=== PATIENT | male | born 1955 | race Caucasian/White ===

== ENCOUNTER 2017-07-07 08:10 | Inpatient (IN) | payer BC, OTHER ==
[~2017-07-07] VITALS: Ht 167.6 cm; Wt 90.7 kg
--- NOTE | 2017-07-07 08:10 | NUR ---
DR MEDINA AT THE BEDSIDE FOR EVAL AND EXAM.
[2017-07-07] MEDS ORDERED: HYDROMORPHONE 1 MG/1 ML DISP.SYRIN IV ONE (08:15)
[2017-07-07] MEDS ORDERED: ONDANSETRON 4 MG/2 ML VIAL IV ONE (08:15)
[2017-07-07] MEDS ORDERED: HYDROMORPHONE 1 MG/1 ML DISP.SYRIN ONE (08:33)
[2017-07-07] MEDS ORDERED: ONDANSETRON 4 MG/2 ML VIAL ONE (08:33)
--- NOTE | 2017-07-07 08:33 | NUR ---
PT OUT OF ER FOR CT.
[2017-07-07 08:44] LABS: BASOPHILS % (AUTO) 0.3 % (0.0-2.0); EOSINOPHILS # (AUTO) 0.3 K/uL (0.0-0.7); HEMATOCRIT 44.7 % (40-50); HEMOGLOBIN 15.3 G/DL (14.0-18.0); LYMPHOCYTES # (AUTO) 2.9 K/UL (0.8-4.8); LYMPHOCYTES % (AUTO) 33.3 % (20.5-51.5); MEAN CORPUSCULAR HEMOGLOBIN 29.5 UUG (27.0-31.0); MEAN CORPUSCULAR HGB CONC 34 g/dL (32.0-37.0); MEAN CORPUSCULAR VOLUME 86.2 FL (82.0-92.0); MONOCYTES # (AUTO) 0.6 K/UL (0.1-1.30); MONOCYTES % (AUTO) 7.1 % (0.0-11.0); NEUTROPHILS % (AUTO) 56.3 % (38.5-71.5); PLATELET COUNT (AUTO) 260 K/UL (150-450); RED BLOOD CELL COUNT(AUTO) 5.18 MIL/UL (4.7-6.1); WHITE BLOOD COUNT (AUTO) 8.8 K/UL (4.0-11.2)
[2017-07-07 08:46] LABS: CREATININE 0.8 mg/dL (0.6-1.3); POTASSIUM 3.9 mmol/L (3.5-5.1)
[2017-07-07 08:53] LABS: BILIRUBIN,DIRECT 0.1 mg/dL (0.0-0.2); BILIRUBIN,TOTAL 0.3 mg/dL (0.2-1.0); TOTAL PROTEIN, SERUM 6.7 g/dL (6.4-8.2)
--- NOTE | 2017-07-07 09:31 | NUR ---
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
[2017-07-07] MEDS ORDERED: ONDANSETRON 4 MG/2 ML VIAL IV PRN (10:00)
[2017-07-07] MEDS ORDERED: MORPHINE SULFATE 2 MG/1 ML DISP.SYRIN IV PRN (10:00)
[2017-07-07] MEDS ORDERED: ACETAMINOPHEN 325 MG TABLET PO PRN (10:00)
--- NOTE | 2017-07-07 10:07 | NUR ---
Dr Cody consulted by ER for Ortho. Posterier short leg splint applied per MD order to RT ankle.
[2017-07-07] MEDS ORDERED: HYDROMORPHONE 1 MG/1 ML DISP.SYRIN IV PRN (10:45)
--- NOTE | 2017-07-07 11:15 | NUR ---
RECEIVED PATIENT FOR ADMISSION 61 YEARS OLD MALE S/P FALL BY [facility] TO ROOM 214 PLACED INTO BED FIXED AND MADE COMFORTABLE PATIENT IS ALERT ORIENTED UNDERSTANDS AND SPEAKS SOME COLOMBIAN BUT HER DAUGHTER IS PRESENT AND ASSISTING WITH THE ADMISSION PROCESS.HE IS ON ROOM AIR WIT NO SHORTNESS OF BREATH AT THIS TIME BLOOD PRESSURE IS 182/91 CALLED AND NOTIFIED [facility] [employer]AT[facility]RAP[facility] TEACHER RE ADMISSION ORDERED AND MEDICAINE FOR THE BLOOD PRESSURE.RIGHT LEG WITH ANKLE SPLINT AND KISHORE WRAP WITH ADEQUATE CIRCULATION ABLE TO WIGGLE TOES.
[2017-07-07] MEDS ORDERED: HYDROCODONE/APAP 5-325MG TABLET PO PRN (11:30)
[2017-07-07] MEDS: hydrALAZINE HCL 25 MG TABLET PO PRN (11:52)
[2017-07-07 11:55] VITALS: BP 182/91
[2017-07-07] MEDS: HYDROMORPHONE 1 MG/1 ML DISP.SYRIN IV PRN ×2 (11:55→16:39)
--- NOTE | 2017-07-07 11:55 | NUR ---
MEDICATED WITH DILAUDID AND APRESOLINE ORDERED AND WILL OBSERVE.
[2017-07-07] MEDS: FAMOTIDINE 20 MG TABLET PO SCH (12:27)
[2017-07-07] MEDS: AMLODIPINE 5 MG TABLET PO SCH (13:35)
--- NOTE | 2017-07-07 14:35 | NUR ---
NEW ORDER FROM DR FARNSWORTH RECEIVED TO OBTAINED CONSCENT FOR EXTERNAL FIXATION OF THE RIGHT ANKLE AND NOTED.
[2017-07-07 15:28] VITALS: BP 141/81
--- NOTE | 2017-07-07 16:00 | NUR ---
PATIENT SEEN DANGLING AT THE EDGE OF THE BED ENCOURAGED TO STAY IN BED AND ELEVATE HIS RIGHT ANKLE INSTRUCTED AND HE EXPRESSED UNDERSTANDING.PILLOW PLACED UNDER HIS RIGHT LEG CIRCULATION REMAINS ADEQUATE.
--- NOTE | 2017-07-07 17:46 | NUR ---
MEDICATED WITH DILAUDID ORDERED FOR RIGHT ANKLE PAIN AND HELPFUL WILL CONTINUE TO OBSERVE
[2017-07-07] MEDS: HYDROCODONE/APAP 10-325 MG TABLET PO PRN (18:05)
--- NOTE | 2017-07-07 18:05 | NUR ---
PATIENT STATED THAT HIS PAIN MEDICATIONS DOES NOT LAST LONG PATIENT WAS MEDICATED WITH DILAUDID AT 1639 SO NORCO GIVEN AT THIS TIME AND [facility] DIRECT[facility] NOTIFIED WITH NEW ORDERS TO DECREASE THE FREQUENCY TO Q3H BUT SAME DOSE AND NOTED.
[2017-07-07 19:41] VITALS: BP 148/67
--- NOTE | 2017-07-07 20:00 | NUR ---
PT INFORMED OF SURGERY TOMORROW, WILL BE NPO POST MIDNIGHT, PT VERBALIZED UNDERSTANDING. RIGHT LEG ANKLE FRACTURE, KISHORE WRAP BANDAGE TO SITE, TOES CAN WIGGLE, DENIES NUMBNESS. SAFETY MEASURES RENDERED.
[2017-07-07 20:39] LABS: *BILIRUBIN,URIN NEGATIVE (NEGATIVE); *BLOOD, URINE NEGATIVE (NEGATIVE); *CLARITY,URINE SLIGHTLY CLOUDY (CLEAR); *COLOR,URINE YELLOW (YELLOW); *KETONES,URINE NEGATIVE (NEGATIVE); *PROTEIN,URINE NEGATIVE (NEGATIVE); *UROBILINOGEN,URINE 0.2 E.U./dl (NORMAL); LEUKOCYTE ESTERASE ,URINE NEGATIVE (NEGATIVE); NITRITE, URINE NEGATIVE (NEGATIVE); PH,URINE 5.5 (5.0-8.0); UGLUCOSE NEGATIVE (NEGATIVE)
[2017-07-07 21:03] LABS: RBC,URINE 0-3 /HPF (0-3); WBC,URINE 0-3 /HPF (0-3)
[2017-07-07 21:04] LABS: BACTERIA,URINE NONE SEEN /HPF (NONE SEEN); SQUAMOUS EPITHELIAL CELL,UR NONE SEEN /HPF (NONE SEEN)
[2017-07-08] VITALS: BP 142/78
[2017-07-08 04:00] VITALS: BP 156/77
[2017-07-08] MEDS: HYDROMORPHONE 1 MG/1 ML DISP.SYRIN IV PRN ×4 (05:05→20:37)
--- NOTE | 2017-07-08 05:56 | NUR ---
LEFT FOR SURGERY.
[2017-07-08] MEDS ORDERED: SEVOFLURANE 250 ML BOTTLE IH ONE (06:25)
[2017-07-08] MEDS ORDERED: ONDANSETRON 4 MG/2 ML VIAL IV ONE (06:25)
[2017-07-08] MEDS ORDERED: CEFAZOLIN 1 G VIAL MC ONE (06:25)
[2017-07-08] MEDS ORDERED: IV LACTATED RINGERS SOLUTION 1,000 ML BAG MC ONE (06:25)
[2017-07-08] MEDS ORDERED: LIDOCAINE HCL 1% 20 ML VIAL MC ONE (06:25)
[2017-07-08] MEDS ORDERED: PROPOFOL 200 MG/20 ML BOTTLE IV ONE (06:25)
[2017-07-08] MEDS ORDERED: BACITRACIN 50,000 UNITS VIAL ONE (06:27)
[2017-07-08] MEDS ORDERED: FENTANYL CITRATE 100 MCG/2 ML AMPUL ONE (06:39)
[2017-07-08] MEDS ORDERED: MIDAZOLAM HCL 2 MG/2 ML VIAL ONE (06:39)
[2017-07-08 06:47] LABS: EOSINOPHILS # (AUTO) 0.1 K/uL (0.0-0.7); EOSINOPHILS % (AUTO) 1.1 % (0.0-7.0); HEMATOCRIT 42.5 % (40-50); HEMOGLOBIN 14.7 G/DL (14.0-18.0); LYMPHOCYTES # (AUTO) 1.7 K/UL (0.8-4.8); MEAN CORPUSCULAR HGB CONC 35 g/dL (32.0-37.0); MEAN CORPUSCULAR VOLUME 86.6 FL (82.0-92.0); MONOCYTES # (AUTO) 0.9 K/UL (0.1-1.30); MONOCYTES % (AUTO) 8.3 % (0.0-11.0); NEUTROPHILS # (AUTO) 7.8 K/UL (1.8-8.9); NEUTROPHILS % (AUTO) 74.6 % (38.5-71.5); PLATELET COUNT (AUTO) 245 K/UL (150-450); RED BLOOD CELL COUNT(AUTO) 4.91 MIL/UL (4.7-6.1); WHITE BLOOD COUNT (AUTO) 10.5 K/UL (4.0-11.2)
[2017-07-08] MEDS ORDERED: SEVOFLURANE 250 ML BOTTLE ONE (06:53)
[2017-07-08 07:10] LABS: BILIRUBIN,TOTAL 0.6 mg/dL (0.2-1.0); CREATININE 0.8 mg/dL (0.6-1.3); MAGNESIUM 1.7 mg/dL (1.8-2.4); PHOSPHOROUS 2.8 mg/dL (2.5-4.9); POTASSIUM 4.2 mmol/L (3.5-5.1); TOTAL PROTEIN, SERUM 6.7 g/dL (6.4-8.2)
[2017-07-08 08:11] LABS: THYROID STIMULATING HORMONE 4.531 mIU/mL (0.358-3.740)
--- NOTE | 2017-07-08 09:15 | NUR ---
PATIENT RETURNED FROM [facility] BY BED AWAKE ALERT AND ORIENTED ON ROOM AIR WITH NO SHORTNESS OF BREATH AT THIS TIME S/P EXTERNAL FIXATION RIGHT ANKLE WITH BULKY DRESSINGS WITH METALS AND SCREWS PATIENT IS ABLE TO WIGGLE TOES WITH ADEQUATE CIRCULATION AT THIS TIME
[2017-07-08] MEDS: FAMOTIDINE 20 MG TABLET PO SCH (09:24)
[2017-07-08] MEDS: AMLODIPINE 5 MG TABLET PO SCH (09:24)
--- NOTE | 2017-07-08 09:25 | NUR ---
BLOOD PRESSURE IS 155/89 PATIENT GIVEN HIS DUE BLOOD PRESSURE MEDICATIONS WITH APPLE JUICE AND JELLO ORDERED B/FAST FOR HIM. WILL CONTINUE TO OBSERVE.
[2017-07-08 09:49] VITALS: BP 155/89
[2017-07-08] MEDS ORDERED: IV LACTATED RINGERS SOLUTION 1,000 ML IV PRN (10:00)
--- NOTE | 2017-07-08 11:21 | NUR ---
PATIENT OBSERVED SLEEPING ON ROUNDS WITH NO SHORTNESS OF BREATH AT THIS TIME
[2017-07-08 12:05] VITALS: BP 134/72
[2017-07-08] MEDS: CEFAZOLIN 1 G in PREMIXED 1 EACH IV SCH ×2 (14:58→21:39)
--- NOTE | 2017-07-08 15:20 | NUR ---
MEDICATED FOR C/O PAIN RIGHT ANKLE LEG ORDERED AND HELPFUL
[2017-07-08 15:33] VITALS: BP 144/71
[2017-07-08] MEDS: MAGNESIUM SULFATE/D5W 100 ML IV SCH ×2 (15:47→16:44)
--- NOTE | 2017-07-08 18:00 | NUR ---
REMAIN ON IV ATB WITH NO ADVERSE OR ALLERGIC REACTIONS REACTIONS AT THIS TIME.
[2017-07-08] MEDS: HYDROCODONE/APAP 10-325 MG TABLET PO PRN (18:07)
[2017-07-08 19:00] VITALS: BP 159/79
--- NOTE | 2017-07-08 19:30 | NUR ---
PT RECEIVED IN BED, AWAKE. FAMILY AT BEDSIDE. A/OX4. CITIZEN OF [place] SPEAKING, BUT ABLE TO MAKE NEEDS KNOWN. UNDERSTANDS LAO. V/S STABLE. IN NO ACUTE DISTRESS. PT C/O RIGHT ANKLE PAIN AT 04/10. WILL ADMIN PAIN MEDICATION ORDERED. IV INTACT AND PATENT. ON RA, TOLERATING WELL. AFEBRILE AT THIS TIME. SAFETY MEASURES IMPLEMENTED. CALL LIGHT WITHIN REACH.
[2017-07-09] MEDS: HYDROMORPHONE 1 MG/1 ML DISP.SYRIN IV PRN ×3 (03:29→20:49)
[2017-07-09 04:00] VITALS: BP 133/70
[2017-07-09 06:36] LABS: BASOPHILS # (AUTO) 0.1 K/uL (0.0-8.0); BASOPHILS % (AUTO) 0.6 % (0.0-2.0); EOSINOPHILS # (AUTO) 0.1 K/uL (0.0-0.7); EOSINOPHILS % (AUTO) 1.3 % (0.0-7.0); HEMATOCRIT 40.4 % (40-50); HEMOGLOBIN 14.1 G/DL (14.0-18.0); LYMPHOCYTES # (AUTO) 1.9 K/UL (0.8-4.8); LYMPHOCYTES % (AUTO) 17.3 % (20.5-51.5); MEAN CORPUSCULAR HEMOGLOBIN 30.1 UUG (27.0-31.0); MEAN CORPUSCULAR HGB CONC 35 g/dL (32.0-37.0); MONOCYTES # (AUTO) 0.9 K/UL (0.1-1.30); NEUTROPHILS # (AUTO) 8.1 K/UL (1.8-8.9); NEUTROPHILS % (AUTO) 72.8 % (38.5-71.5); PLATELET COUNT (AUTO) 227 K/UL (150-450); RED BLOOD CELL COUNT(AUTO) 4.69 MIL/UL (4.7-6.1); WHITE BLOOD COUNT (AUTO) 11.1 K/UL (4.0-11.2)
--- NOTE | 2017-07-09 06:40 | NUR ---
END OF SHIFT NOTES. PT SLEPT WELL THROUGHOUT SHIFT. IN STABLE CONDITION. IV ABX INFUSED. IV HL, INTACT & PATENT. PAIN MANAGED. RIGHT LEG ELEVATED ON PILLOW. DRESSING C/D/I. ALL NEEDS ATTENDED. SAFETY MAINTAINED. CALL LIGHT WITHIN REACH.
[2017-07-09 06:46] LABS: CREATININE 0.8 mg/dL (0.6-1.3); POTASSIUM 4.3 mmol/L (3.5-5.1)
[2017-07-09 07:35] LABS: BAND % (MANUAL) 3 % (0-10); EOSINOPHILS % (MANUAL) 1 % (0-8); LYMPHOCYTES % (MANUAL) 18 % (20-40); MONOCYTES % (MANUAL) 11 % (2-10); NEUTROPHILS % (MANUAL) 67 % (42-75)
--- NOTE | 2017-07-09 07:45 | NUR ---
RECEIVED PATIENT IN BED AWAKE ALERT WITH SCREWS AND METAL TO HIS RIGHT ANKLE INTACT WITH DRY BLOOD ON THE GAUZE DRESSING AROUND THE METAL SCREWS PATIENT REMINDED TO KEEP HIS RIGHT LEG ELEVATED TO DECREASE SWELLING AND HE EXPRESSED UNDERSTANDING.
[2017-07-09] MEDS: AMLODIPINE 5 MG TABLET PO SCH (08:28)
[2017-07-09] MEDS: FAMOTIDINE 20 MG TABLET PO SCH (08:28)
[2017-07-09] MEDS: HYDROCODONE/APAP 10-325 MG TABLET PO PRN ×2 (08:29→17:26)
--- NOTE | 2017-07-09 09:55 | NUR ---
PHYSICAL THERAPY HERE TO SEE PATIENT AND NOTED THAT THE KISHORE WRAP HAS SOME BLEEDING AND ALSO THEY TRIED TO GET HIM UP HE HAS DRIPS OF BLOOD ON THE FLOOR SO I CALLED DR MEJIA OFFICE TO NOTIFY HIM BUT NO ONE ANSWERED THE PHONE SO I LEFT A MESSAGE ON HIS VOICE MAIL.RE THE BLEEDING AND IF I SHOULD CHANGE OR REINFORCE THE DRESSING.AWAITING FOR RETURN CALL.
--- NOTE | 2017-07-09 11:08 | NUR ---
DR WALLIS RETURNED CALL AND STATED THAT SOME BLEEDING IS OKAY AND EXPECTED JUST REINFORCE OR CHANGE THE DRESSINGS WITH XEROFORM DRESSING GAUZE AND KISHORE WRAP NEEDED.
[2017-07-09 11:16] VITALS: BP 143/69
--- NOTE | 2017-07-09 11:30 | NUR ---
WHEN DRESSING WAS OPEN BY ME INSTRUCTED BY DR WALLIS I NOTED MULTIPLE BLISTERS LARGEST ONE MEASURING 5CM X 3CM AND THE SMALLEST MEASURING 1CM X 1CM WITH SEROUS FLUID INTACT SEE PICTURES.PIN INSERTION SITES AND BLISTERS CLEANSED WITH NORMAL SALINE AND PETROLEUM GAUZE APPLIED TO THE PIN SITES WITH DRY KIRLIX GAUZE THEN THE BLISTERS SECURED WITH TRANSPARENT DRESSINGS FLUIDS REMAIN INTACT THEN WRAPPED WITH KISHORE BANDAGE PATIENT TOLERATED WELL DR NEELY WAS HERE PRESENT AND I TOOK HIM INTO THE ROOM AND HE SAW THESE BLISTERS AND SPOKE TO THE PATIENT AND HIS SON AT LENGTH.
--- NOTE | 2017-07-09 14:30 | NUR ---
PATIENT WAS SEEN BY THE PHYSICAL THERAPY FOR AMBULATION WITH THE FRONT WHEEL WALKER AND TOLERATED WELL AND BACK TO BED.
[2017-07-09 15:41] VITALS: BP 122/70
--- NOTE | 2017-07-09 18:00 | NUR ---
MEDICATED WITH NORCO ORALLY FOR PAIN ORDERED DRESSING RIGHT LEG IS CLEAN AND DRY CONTINUE TO ENCOURAGE PATIENT TO KEEP RIGHT LEG ELEVATED AND HE EXPRESSED UNDERSTANDING.
--- NOTE | 2017-07-09 19:30 | NUR ---
RECEIVED SHIFT REPORT FROM PREVIOUS SHIFT NURSE. PATIENT A/OX3. PATIENT'S SPOUSE AND DAUGHTER AT BEDSIDE. WOUNDS ARE WRAPPED AND DOES NOT APPEAR IT NEEDS TO BE CHANGED AT THE MOMENT BUT WILL CONTINUE TO MONITOR. PAIN MANAGEMENT WILL BE PROVIDED. BED IN LOCKED/LOW POSITION WITH SIDE RAILS UPX2. ADVISED PATIENT TO USE CALL LIGHT WHEN ASSISTANCE IS NEEDED. SAFETY AND COMFORT WILL BE PROVIDED THROUGHOUT SHIFT.
[2017-07-09 20:00] VITALS: BP 129/79
[2017-07-10] MEDS: HYDROMORPHONE 1 MG/1 ML DISP.SYRIN IV PRN ×3 (04:17→14:41)
[2017-07-10 06:08] VITALS: BP 139/77
--- NOTE | 2017-07-10 06:46 | NUR ---
Patient slept intermittently through the night due to pain in right foot. Pain management/medication provided to patient. Patient is A/O x3. Stable condition, VSS, no s/s of distress. Wound dressing continues to be intact. Bed in locked/low position with side rails up x2. Call light within reach. Fall prevention implemented throughout shift. Safety and comfort will be provided until end of shift.
[2017-07-10] MEDS: FAMOTIDINE 20 MG TABLET PO SCH (08:14)
[2017-07-10] MEDS: AMLODIPINE 5 MG TABLET PO SCH (08:15)
--- NOTE | 2017-07-10 08:30 | NUR ---
AWAKE ALERT COOPERATE WELL EAT BREAKFAST WITH GOOD APPETITE NO PAIN OR SOB DSG AT LEFT LEG ANKLE D/I WITH SMALL SEROSANQUINEUS LIGHT PK ON FALL PRECAUTION CALL LIGHT WITHIN REACH AND INSTRUCTION TO CALL WHEN NEED
--- NOTE | 2017-07-10 09:30 | NUR ---
OOB AMB WITH PT DOING WELL AND UP IN CHAIR THIS MORNING
[2017-07-10 11:16] VITALS: BP 151/83
--- NOTE | 2017-07-10 14:41 | NUR ---
C/O OF PAIN AT RT LEG ANKLE WOUND MEDICATION PRN GIVEN ORDER FAMILY AT BEDSIDE RESTING WELL
[2017-07-10 15:06] VITALS: BP 147/79
--- NOTE | 2017-07-10 16:00 | NUR ---
REMOVE IV ON RT AC AND RESTART A NEW ONE ON LT HAND#[email or web address]
--- NOTE | 2017-07-10 18:00 | NUR ---
CONDITION STABLE NO ACUTE DISTRESS SAFETY MEASURE PROVIDED CALL BEDOYA IN REACH PAIN UNDER CONTROL
[2017-07-10 20:00] VITALS: BP 161/86
--- NOTE | 2017-07-10 20:00 | NUR ---
RECEIVED PATIENT AWAKE IN BED. FAMILY AT BEDSIDE. NO C/O PAIN AT THIS TIME. H/L INTACT AND PATENT. RIGHT LOWER EXTREMITY ELEVATED ON PILLOWS. NEURO-VASCULAR CHECKS WNL. CALL LIGHT IN REACH. ALL NEEDS ATTENDED. WILL CONTINUE TO MONITOR.
[2017-07-10 21:00] VITALS: BP 142/74
[2017-07-10] MEDS: HYDROCODONE/APAP 10-325 MG TABLET PO PRN (21:11)
--- NOTE | 2017-07-11 06:52 | NUR ---
PATIENT ASLEEP IN BED. NO S/S OF PAIN OR DISCOMFORT. CALL LIGHT IN REACH.
[2017-07-11 07:01] VITALS: BP 128/58
[2017-07-11] MEDS: HYDROCODONE/APAP 10-325 MG TABLET PO PRN ×3 (07:54→20:55)
[2017-07-11] MEDS: FAMOTIDINE 20 MG TABLET PO SCH (08:56)
[2017-07-11] MEDS: AMLODIPINE 5 MG TABLET PO SCH ×2 (08:57→20:51)
[2017-07-11] MEDS: hydrALAZINE HCL 25 MG TABLET PO PRN (11:25)
--- NOTE | 2017-07-11 11:31 | NUR ---
pt bp 188/74, prn medication given as ordered. denies pain at this time
[2017-07-11 11:59] VITALS: BP 188/74
[2017-07-11 16:12] VITALS: BP 139/67
--- NOTE | 2017-07-11 19:30 | NUR ---
RECEIVED SHIFT REPORT FROM PREVIOUS SHIFT NURSE. PATIENT IS A/OX4, STABLE CONDITION, NO S/S OF DISTRESS. COMPLAINS OF PAIN WHERE HIS EXTERNAL FIXATION IS PLACED. PAIN MANAGEMENT WILL BE PROVIDED AND DRESSING CHANGE WILL BE PROVIDED DURING SHIFT. BED IN LOCKED/LOW POSITION, CALL LIGHT WITHIN REACH. PATIENT COMPREHENDS HOW TO USE CALL LIGHT. SAFETY AND COMFORT WILL BE PROVIDED THROUGHOUT SHIFT.
[2017-07-11 20:39] VITALS: BP 134/69
--- NOTE | 2017-07-12 00:30 | NUR ---
PATIENT HAS NOT HAD A BOWEL MOVEMENT SINCE ADMISSION (07/07/17). PATIENT EXPRESSES HE PASSES GAS. BOWEL SOUNDS HEARD AND THEY ARE ACTIVE IN ALL 4 QUADRANTS. WILL GET INTO CONTACT WITH MD AND INFORM OF PATIENT CONDITION.
[2017-07-12] MEDS ORDERED: MAGNESIUM HYDROXIDE 30 ML LIQUID UDC PO PRN (08:00)
[2017-07-12] MEDS: FAMOTIDINE 20 MG TABLET PO SCH (09:07)
[2017-07-12] MEDS: AMLODIPINE 5 MG TABLET PO SCH (09:07)
[2017-07-12 11:35] VITALS: BP 113/71
[2017-07-12] MEDS: HYDROCODONE/APAP 10-325 MG TABLET PO PRN (15:18)
[2017-07-12] MEDS ORDERED: INFLUENZA VACCINE 2017-2018 0.5 ML DISP.SYRIN IM ONE (15:30)
--- NOTE | 2017-07-12 15:45 | NUR ---
discharge noted, awaiting dr to bring prescription for pain medication. iv removed with no redness or irritation noted, flu shot given as requested by patient. all discharge education given, pt verbalized understanding. family at bedside
[2017-07-12 15:49] VITALS: BP 125/70
--- NOTE | 2017-07-12 18:59 | NUR ---
Still awaiting dr maldonado to write prescription, Dr abdul, on his way, will endorse to nightclub manager.
--- NOTE | 2017-07-12 19:35 | NUR ---
dr arrived with prescription, pt taken down in wheelchair and left in private car with family
== END 2017-07-12 19:00 | disposition home health service (06) | DRG 494 ==
LOC: ER 08:10 → MED 10:32 → TELE 11:53 → MED 07-08 16:04
PROVIDERS: ADMIT Internal Medicine; ATTEND Internal Medicine
PROC: 0QSG35Z Reposition Right Tibia with External Fixation Device, Percutaneous Approach (ICD-10-PCS; principal; 2017-07-08 06:25)
DX: S82.871A Displaced pilon fracture of right tibia, initial encounter for closed fracture (principal); E88.09 Other disorders of plasma-protein metabolism, not elsewhere classified; E66.9 Obesity, unspecified; S82.451A Displaced comminuted fracture of shaft of right fibula, initial encounter for closed fracture; I10 Essential (primary) hypertension; W11.XXXA Fall on and from ladder, initial encounter; Y93.89 Activity, other specified; Y92.009 Unspecified place in unspecified non-institutional (private) residence as the place of occurrence of the external cause; M54.9 Dorsalgia, unspecified; M51.36 Other intervertebral disc degeneration, lumbar region; M48.07 Spinal stenosis, lumbosacral region; Z68.32 Body mass index [BMI] 32.0-32.9, adult; R00.1 Bradycardia, unspecified
CPT/HCPCS: 36415; 70030-TC; 71010; 72131; 73600; 73610; 76000; 83735; 84100; 84443; 85025; 85730; 87086; 90686; 93005; 93307; 97110; 97116; 97530; A4217; A4649; A4663; J0690; J1170; J2250; J2405; J3010; J3475; J3490; J7120

== ENCOUNTER 2017-07-15 10:35 | Emergency (ER) | payer BC, OTHER ==
[~2017-07-15] VITALS: Ht 172.7 cm; Wt 79.4 kg
--- NOTE | 2017-07-15 10:42 | NUR ---
PT CALLED IN FOR TRIAGE, STATES HE WANTS TO WAIT FOR HIS FRIEND BEFORE COMING IN. NO EVIDENCE OF ACUTE DISTRESS.
--- NOTE | 2017-07-15 11:07 | NUR ---
dr. mondragon talking to dr. key, pt ortho surgeon.
--- NOTE | 2017-07-15 11:20 | NUR ---
REMOVED KISHORE WRAP ON RT ANKLE PER MD REQUEST.
--- NOTE | 2017-07-15 11:21 | NUR ---
DR ALMAZAN AT THE BEDSIDE FOR EVAL AND EXAM.
--- NOTE | 2017-07-15 11:33 | NUR ---
APPLIED KISHORE WRAP TO RT ANKLE PER MD ORDER. PT WILL FOLLOW UP W/ GEOVANNY GARCIA (INFO PROVIDED).
--- NOTE | 2017-07-15 11:41 | NUR ---
Patient discharged to home in stable conditon. Written and verbal after care instructions given. Patient verbalizes understanding of instructions. PT LEFT ER ACCOMPAINED BY SON.
[2017-07-15 11:42] VITALS: BP 120/71
== END 2017-07-15 11:43 | disposition home or self-care (01) ==
LOC: ER 10:35
DX: Z48.01 Encounter for change or removal of surgical wound dressing (principal)
CPT/HCPCS: 99281; A4663